=== PATIENT | female | born 1995 | race Caucasian/White ===

== ENCOUNTER 2020-01-04 05:29 | Inpatient (IN) | payer OTHER ==
[~2020-01-04] VITALS: Ht 154.9 cm; Wt 104.5 kg
[2020-01-04 06:09] VITALS: BP 140/81
[2020-01-04 06:53] LABS: CULTURE INDICATED? YES; MICROSCOPIC INDICATED
[2020-01-04] MEDS ORDERED: D5%-LACTATED RINGERS 1,000 ML IV SCH (07:14)
[2020-01-04] MEDS ORDERED: OXYTOCIN 30U/ 0.9% NaCL 500ML 500 ML IV ONE (07:14)
[2020-01-04] MEDS ORDERED: MISOPROSTOL 200 MCG TABLET ONE (07:30)
[2020-01-04] MEDS ORDERED: PENICILLIN GK 5,000,000 UNITS in DEXTROSE 5% 100 ML IVPB ONE (07:30)
[2020-01-04] MEDS ORDERED: FENTANYL PF 100 MCG/2ML IV PRN (07:30)
[2020-01-04] MEDS ORDERED: SODIUM CITRATE/CITRIC ACID 30 ML UDC PO PRN (07:30)
[2020-01-04] MEDS ORDERED: OXYTOCIN 30U/ 0.9% NaCL 500ML 500 ML ONE (07:30)
[2020-01-04] MEDS ORDERED: METOCLOPRAMIDE 5 MG/ML, 2ML IVPush PRN (07:30)
[2020-01-04] MEDS ORDERED: ALUMINUM/MAG/SIMETHICONE 30 ML UDC PO PRN (07:30)
[2020-01-04] MEDS ORDERED: TERBUTALINE 1 MG/ML, 1ML SQ PRN (07:30)
[2020-01-04] MEDS ORDERED: TERBUTALINE 1 MG/ML, 1ML IVPush PRN (07:30)
[2020-01-04] MEDS ORDERED: ONDANSETRON 2MG/ML, 2ML IVPush PRN (07:30)
[2020-01-04] MEDS ORDERED: LIDOCAINE 1%, 20ML ONE (07:30)
[2020-01-04] MEDS ORDERED: CALCIUM CARBONATE 500 MG TAB.CHEW PO PRN (07:30)
[2020-01-04] MEDS: LACTATED RINGERS 1,000 ML IV SCH ×2 (07:45→11:15)
[2020-01-04 07:55] VITALS: BP 136/71
[2020-01-04 08:00] LABS: MEAN CORPUSCULAR HGB CONC 33.7 g/dL (32.4-35.8); MEAN CORPUSCULAR VOLUME 89.2 fL (80-100); MEAN PLATELET VOLUME 8.4 fL (7.4-10.4); PLATELET COUNT 167 x10^3/uL (130-400); RED BLOOD COUNT 4.65 x10^6/uL (3.82-5.3); RED CELL DISTRIBUTION WIDTH 13.5 % (9.6-15.2)
[2020-01-04 08:17] LABS: BASOPHILS # (AUTO) 0.04 x10^3/uL (0-0.1); BASOPHILS % (AUTO) 0 % (0-1); EOSINOPHILS # (AUTO) 0.01 x10^3/uL (0-0.4); EOSINOPHILS % (AUTO) 0 % (1-7); LYMPHOCYTES # (AUTO) 0.73 x10^3/uL (1-3.4); LYMPHOCYTES % (AUTO) 4 % (22-44); MD SCAN; MONOCYTES # (AUTO) 0.45 x10^3/uL (0.2-0.8); MONOCYTES % (AUTO) 3 % (2-9); NEUTROPHILS # (AUTO) 16.94 x10^3/uL (1.8-6.8); NEUTROPHILS % (AUTO) 93 % (42-75)
[2020-01-04] MEDS ORDERED: FENTANYL PF 100 MCG/2ML ONE ×2 (08:25→09:20)
[2020-01-04] MEDS: FENTANYL PF 100 MCG/2ML IVPush PRN ×2 (08:27→09:26)
[2020-01-04] MEDS ORDERED: PENICILLIN GK 2,500,000 UNITS in DEXTROSE 5% 100 ML IVPB SCH (11:30)
[2020-01-04] MEDS ORDERED: NEWBORN KIT ONE (11:42)
[2020-01-04] MEDS: OXYTOCIN 30U/ 0.9% NaCL 500ML 500 ML IV SCH ×2 (11:55→21:55)
[2020-01-04] MEDS ORDERED: MISOPROSTOL 200 MCG TABLET PR PRN (12:00)
[2020-01-04] MEDS ORDERED: ONDANSETRON 2MG/ML, 2ML IV PRN (12:00)
[2020-01-04] MEDS ORDERED: OXYcodone IR 5MG TABLET PO PRN (12:00)
[2020-01-04] MEDS ORDERED: SIMETHICONE 80 MG CHEW TAB PO PRN (12:00)
[2020-01-04] MEDS ORDERED: ACETAMINOPHEN 325 MG TABLET PO PRN (12:00)
[2020-01-04] MEDS ORDERED: OXYcodone/APAP 5/325MG TABLET PO PRN (12:00)
[2020-01-04] MEDS ORDERED: IBUPROFEN 600 MG TABLET ONE (13:36)
[2020-01-04] MEDS: IBUPROFEN 600 MG TABLET PO PRN (13:37)
[2020-01-04 17:30] VITALS: BP 112/68
[2020-01-04 19:20] VITALS: BP 105/65
[2020-01-04 19:34] LABS: MEAN CORPUSCULAR HEMOGLOBIN 30.4 pg (27.0-34.8); MEAN CORPUSCULAR HGB CONC 34.1 g/dL (32.4-35.8); MEAN CORPUSCULAR VOLUME 89.1 fL (80-100); MEAN PLATELET VOLUME 8.8 fL (7.4-10.4); PLATELET COUNT 173 x10^3/uL (130-400); RED BLOOD COUNT 4.23 x10^6/uL (3.82-5.3); RED CELL DISTRIBUTION WIDTH 13.5 % (9.6-15.2)
[2020-01-04 20:03] LABS: MD YES
[2020-01-04 20:05] LABS: BAND#(MANUAL) 1.13 x10^3/uL; BANDS%(MANUAL) 6 % (0-7); LYMPH#(MANUAL) 1.13 x10^3/uL (1-3.4); LYMPHS% (MANUAL) 6 % (22-44); MONOS#(MANUAL) 0.57 x10^3/uL (0.3-2.7); MONOS% (MANUAL) 3 % (2-9); SEG#(MANUAL) 16.07 x10^3/uL (1.8-6.8); SEGS% (MANUAL) 85 % (42-75)
[2020-01-04 20:06] LABS: <PLATELET ESTIMATE> ADEQUATE; ANISOCYTOSIS 1+; LARGE PLATELETS 1+
[2020-01-04 22:48] VITALS: BP 105/65
[2020-01-04] MEDS ORDERED: RHOGAM FROM BLOOD BANK 1 NOTE EA IM/IV ONE (23:00)
[2020-01-05] MEDS: IBUPROFEN 600 MG TABLET PO PRN ×3 (01:04→20:19)
[2020-01-05 02:00] VITALS: BP 101/61
[2020-01-05 05:44] VITALS: BP 108/64
[2020-01-05 08:06] VITALS: BP 138/71
[2020-01-05] MEDS: DOCUSATE 100 MG CAPSULE PO PRN ×2 (08:57→20:19)
[2020-01-05] MEDS: PRENATAL VIT/IRON/FA 1 EACH TABLET PO SCH (08:57)
[2020-01-05 20:00] VITALS: BP 116/68
[2020-01-06 07:35] VITALS: BP 126/70
[2020-01-06] MEDS: PRENATAL VIT/IRON/FA 1 EACH TABLET PO SCH (07:42)
[2020-01-06] MEDS: IBUPROFEN 600 MG TABLET PO PRN (07:42)
[2020-01-06] MEDS: DOCUSATE 100 MG CAPSULE PO PRN (07:43)
[2020-01-06] MEDS ORDERED: IBUP-1222 PO (09:52)
[2020-01-06] MEDS ORDERED: DOCU-131 PO (09:52)
== END 2020-01-06 12:53 | disposition home or self-care (01) | DRG 807 ==
LOC: LDOP 05:29 → LDIP 07:16 → 2NE 15:56 → 2NW 17:22
PROVIDERS: ADMIT Obstetrics & Gynecology; ATTEND Obstetrics & Gynecology
PROC: 10E0XZZ Delivery of Products of Conception, External Approach (ICD-10-PCS; principal; 2020-01-04)
PROC: 0KQM0ZZ Repair Perineum Muscle, Open Approach (ICD-10-PCS; 2020-01-04)
PROC: 0W8NXZZ Division of Female Perineum, External Approach (ICD-10-PCS; 2020-01-04)
DX: O60.14X0 Preterm labor third trimester with preterm delivery third trimester, not applicable or unspecified (principal); Z37.0 Single live birth; Z3A.36 36 weeks gestation of pregnancy; O70.1 Second degree perineal laceration during delivery
CPT/HCPCS: 36415; 81001; 85025; 85461; 86592; 86850; 86900; 87086; G0378; J2540; J2790; J3010; J2590; J7120